=== PATIENT | female | born 1975 | race Caucasian/White ===

== ENCOUNTER 2023-09-16 19:44 | Emergency (ER) | payer OTHER ==
[~2023-09-16] VITALS: Ht 154.9 cm; Wt 56.7 kg
[~2023-09-16 19:44] MED LIST: ACET-8905 PO; ADVIL; nph insulin; regular insulin
[2023-09-16 20:05] VITALS: BP 206/107; PULSE 87; RESP 20; TEMP 98.1; O2SAT 100
[2023-09-16] MEDS ORDERED: HYDROcodone/APAP 5/325 MG 1 TAB TAB PO ONE (20:25)
[2023-09-16 22:27] LABS: BASOPHILS % (AUTO) 0.4 % (0.0-2.0); EOSINOPHILS # (AUTO) 0.2 K/uL (0-0.4); EOSINOPHILS % (AUTO) 3.3 % (0.0-4.0); HEMATOCRIT 32.6 % (36-48); HEMOGLOBIN 11.3 g/dL (12.0-16.0); LYMPHOCYTES % (AUTO) 19.4 % (20.5-51.1); MEAN CORPUSCULAR HEMOGLOBIN 31 pg (27-31); MEAN CORPUSCULAR HGB CONC 35 g/dL (33-37); MEAN CORPUSCULAR VOLUME 89.8 fL (80-94); MONOCYTES # (AUTO) 0.3 K/uL (0.8-1.0); MONOCYTES % (AUTO) 6.5 % (1.7-9.3); NEUTROPHILS # (AUTO) 3.5 K/uL (1.8-7.7); NEUTROPHILS % (AUTO) 70.4 % (42.2-75.2); PLATELET COUNT (AUTO) 25 K/uL (140-450); RED BLOOD CELL COUNT(AUTO) 3.63 MIL/uL (4.20-5.40)
[2023-09-16 22:42] LABS: ANION GAP 14.1 (8-16); CALCIUM 9.8 mg/dL (8.5-10.1); CARBON DIOXIDE 28.3 mmol/L (21-32); CREATININE 3.3 mg/dL (0.6-1.3); POTASSIUM 4.4 mmol/L (3.5-5.1)
[2023-09-16 22:46] LABS: INR 1.05 (0.8-1.2); PARTIAL THROMBOPLASTIN TIME 28.7 secs (22-35.6)
[2023-09-16] MEDS ORDERED: ACET-2619 PO (22:59)
[2023-09-16] MEDS ORDERED: CHLO-1090 PO (22:59)
[2023-09-16] MEDS ORDERED: ONDA-188 SL (22:59)
[2023-09-17 00:15] VITALS: BP 125/39; RESP 18; TEMP 98
[2023-09-17 00:25] LABS: FLU A ANTIGEN negative (NEGATIVE); FLU B ANTIGEN NEGATIVE (NEGATIVE)
[2023-09-17 01:31] VITALS: PULSE 100; O2SAT 90
== END 2023-09-17 00:15 | disposition home or self-care (01) ==
LOC: MED 20:01
DX: R51.9 Headache, unspecified (principal); R05.9 Cough, unspecified; R11.0 Nausea; Z20.822 Contact with and (suspected) exposure to COVID-19; E11.22 Type 2 diabetes mellitus with diabetic chronic kidney disease; N18.6 End stage renal disease; Z99.2 Dependence on renal dialysis; Z79.899 Other long term (current) drug therapy; Z79.4 Long term (current) use of insulin
CPT/HCPCS: 36415; 70450; 71045; 80048; 83880; 84484; 85025; 85610; 85730; 93005; 99285